=== PATIENT | male | born 1950 | race Caucasian/White ===

== ENCOUNTER → 2017-11-14 13:16 | Outpatient (CLI) | payer MEDICARE, MEDICAID ==
[~2017-11-14 13:16] MED LIST: CARDIZEM CD120 MG PO; CARDIZEM CD240 MG PO; COUMADIN5 MG PO; ELIQUIS2.5 MG PO; FLAGYL500 MG PO; HYDROCODON-ACE1 EAC7 PO; KEFLEX500 MG PO; LANOXIN125 MCG PO; PERCOCET 10/3251 TA1 PO; XARELTO20 MG PO
== END | disposition home or self-care (01) ==
LOC: D.CT 13:16
DX: K42.9 Umbilical hernia without obstruction or gangrene (principal)

== ENCOUNTER 2019-04-20 12:27 | Day surgery (SDC) | payer MEDICARE, MEDICAID ==
[~2019-04-20] VITALS: Ht 188 cm; Wt 117.7 kg
[2019-04-20 13:04] LABS: HEMATOCRIT 41.3 % (42.0-54.0); HEMOGLOBIN 13.1 g/dL (13.5-17.5); MCH 24.5 pg (26.0-34.0); MCHC 31.7 g/dL (31.0-37.0); MCV 77.2 fL (80.0-100.0); MEAN PLATELET VOLUME 9.9 fL (7.4-10.4); RBC 5.35 10x6/uL (4.20-6.10); RDW 16.6 % (11.5-14.5)
[2019-04-20 13:05] LABS: PLATELET COUNT 213 10x3/uL (130-400)
[2019-04-20 13:08] LABS: ANION GAP 12.2 mmol/L (8-16); CALCIUM 8.6 mg/dL (8.5-10.1); CARBON DIOXIDE 28.9 mmol/L (21.0-32.0); CREATININE - SERUM 1.2 mg/dL (0.6-1.3); POTASSIUM - SERUM 4.1 mmol/L (3.5-5.1)
[2019-04-20] MEDS ORDERED: XARELTO20 MG PO (13:59)
[2019-04-20] MEDS ORDERED: LANOXIN125 MCG PO (14:00)
[2019-04-20 14:02] VITALS: Ht 188 cm; Wt 117.7 kg
--- NOTE | 2019-04-20 14:44 | NUR ---
POSITIVE FOR SUICIDE SCREENING FOR LIFETIME QUESTION, LANI ESPINOZATITLE ONE READING TEACHER NOTIFIED
[2019-04-20 14:51] LABS: ANISOCYTOSIS OCC; EOSINOPHILS 1 % (0-7); LYMPHOCYTES 24 % (15-50); MONOCYTES 11 % (2-11); NEUTROPHILS 63 % (40-80); PLATELET ESTIMATE NORMAL
--- NOTE | 2019-04-20 15:27 | NUR ---
1525 NO FAMILY IN PT'S ROOM. CALLED PT'S SON TO LET HIM KNOW HIS FATHER'S PROCEDURE IS OVER AND HE IS BACK IN THE ROOM.
--- NOTE | 2019-04-20 16:00 | NUR ---
DR HUGGINS NOTIFIED AND REVIEWED PT'S BEHAVIOR AND ASSESSMENT RESULTS. PT IS A LOW RISK. RESOURCES GIVEN AND HE VERBALIZES UNDERSTANDING.
--- NOTE | 2019-04-20 16:25 | NUR ---
1610 IV DC'D. CATHETER TIP INTACT. NO BLEEDING OR SWELLING AT IV SITE. BANDAID APPLIED. PT HAS MET DISCHARGE CRITERIA. WAITING FOR FAMILY TO RETURN TO HOSPITAL. SECOND CALL PUT INTO PT'S SON WHO SAYS HE IS ON HIS WAY.
--- NOTE | 2019-04-21 16:37 | OP ---
PATIENT NAME: GILBERT ASHLEY MEDICAL RECORD: [id number] :50 [facility] AD[facility] DATE: SURGEON: KAYCE JUAREZ DO DATE OF OPERATION: 04/20/2019 PROCEDURE: Colonoscopy with polypectomy and biopsies. INDICATIONS FOR PROCEDURE: History of colon cancer and anemia. SCOPE: [employer] video pediatric colonoscope. MEDICATIONS: Propofol 600 mg IV per anesthesia. ESTIMATED BLOOD LOSS: Minimal. COMPLICATIONS: None. WITHDRAWAL TIME: 15 minutes. FINDINGS: Informed consent was given. The patient was made comfortable with the above medication. After reaching an adequate level of sedation by slow IV push, the patient was placed on his left side. A digital rectal examination was performed and it was normal. The endoscope was then advanced under direct visualization through the rectum to the cecum, confirmed by the presence of the appendiceal orifice and ileocecal valve. The endoscope was slowly withdrawn. Mucosa was carefully examined. The prep quality was good. There was evidence of a prior surgery in the sigmoid region. There were 3 polyps visualized on today's examination. They were all benign appearing and sessile and ranged in size from 3-6 mm in diameter. One was located in the transverse colon. It was removed using hot snare. One was located in the descending colon. It was removed using hot forceps. One was located in the rectum and it was removed using a hot snare. Also, in the rectum, there appeared to be a submucosal nodule or possibly a lipoma. A cold forceps biopsy was taken from the surface to confirm that this is not adenomatous tissue. This site measured approximately 1 cm and was located in the rectum. Retroflexion was performed in the rectum with visualization of grade I internal hemorrhoids without bleeding. The endoscope was withdrawn from the patient. The patient tolerated the procedure well and there were no complications. IMPRESSION: 1. Three polyps as described above, removed using a combination of hot snare and hot forceps. 2. Grade I internal hemorrhoids without bleeding. PLAN AND RECOMMENDATIONS: 1. Discharge home when recovery parameters are met. 2. Follow up biopsy specimen results. 3. High fiber diet. 4. Continue current medications. 5. Recall colonoscopy in 2-3 years for surveillance based on a personal history of colon cancer and colon polyps. TRANSINT:[id number] Voice Confirmation ID: [id number] DOCUMENT ID: [id number] OPERATIVE REPORT [id number] GILBERT ASHLEY KAYCE JUAREZ DO at 1637 CC: [id number] DICTATION DATE: 04/20/19 1507 [employer] DEVELOPER: 04/20/19 2212 [facility] 04/20/19 [id number] [place] [address]
== END 2019-04-20 16:32 | disposition home or self-care (01) ==
LOC: D.OPS 12:27
PROVIDERS: Anesthesiology; ATTEND Internal Medicine Gastroenterology
DX: Z85.038 Personal history of other malignant neoplasm of large intestine (principal); D64.9 Anemia, unspecified